=== PATIENT | male | born 1975 ===

== ENCOUNTER 2017-12-23 23:09 | Emergency (ER) | payer OTHER ==
[2017-12-23 23:27] VITALS: BP 125/87; PULSE 97; RESP 18; TEMP 98.1; O2SAT 97
[2017-12-23] MEDS ORDERED: Lidocaine 5% Patch TD STA (23:30)
[2017-12-23] MEDS ORDERED: Lidocaine 5% Patch TD ONE (23:34)
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
== END 2017-12-24 00:08 | disposition home or self-care (01) ==
LOC: C.ER 23:09
DX: S16.1XXA Strain of muscle, fascia and tendon at neck level, initial encounter (principal); V89.2XXA Person injured in unspecified motor-vehicle accident, traffic, initial encounter